=== PATIENT | male | born 1975 | race Caucasian/White ===

== ENCOUNTER 2019-01-11 12:16 | Emergency (ER) | payer SELFPAY ==
[~2019-01-11] VITALS: Ht 167.6 cm; Wt 70.3 kg
[2019-01-11] MEDS ORDERED: DEXAMETHASONE SOD PHOS 4 MG/ML VIAL IM ONE (13:00)
[2019-01-11] MEDS ORDERED: KETOROLAC 60 MG/2 ML VIAL. IM ONE (13:00)
[2019-01-11] MEDS ORDERED: METOCLOPRAMIDE 10 MG TABLET. PO ONE (13:00)
[2019-01-11] MEDS ORDERED: diphenhydrAMINE HCL 25 MG CAPSULE PO ONE (13:00)
--- NOTE | 2019-01-11 13:19 | PHYS DOC ---
Past Medical History Past Medical History: No Pertinent History, Migraines, Other Past Surgical History: Other Additional Past Surgical Histo: HERNIA REPAIR, TOE REPAIR, CYST REMOVAL FROM NECK Alcohol Use: Occasionally Drug Use: Marijuana Adult General Chief Complaint Chief Complaint: HEADACHE HPI HPI Patient is a 43 year old male presents to the ED complaining of headache times one week ago. Patient states the headache is on left-side of head. Describes the pain as sharp. Rates the pain as 10/10. States he is taking Aleve [id number] without relief. Patient has a history of a cystic lesion to his neck that was removed in the past. States he used to have headaches prior to cyst removal. Denies worsening of life, vision changes, fever, nausea/vomiting, chest pain, shortness of breath, weakness or paresthesias. Review of Systems Review of Systems Constitutional: Denies fever or chills [] Eyes: Denies change in visual acuity, redness, or eye pain [] HENT: Denies nasal congestion or sore throat [] Respiratory: Denies cough or shortness of breath [] Cardiovascular: No additional information not addressed in HPI [] GI: Denies abdominal pain, nausea, vomiting, bloody stools or diarrhea [] : Denies dysuria or hematuria [] Musculoskeletal: Denies back pain or joint pain [] Integument: Denies rash or skin lesions [] Neurologic: Complains of headache. Denies focal weakness or sensory changes [] Endocrine: Denies polyuria or polydipsia [] All other systems were reviewed and found to be within normal limits, except as documented in this note. Current Medications Current Medications Current Medications Medications (Trade) Dose Ordered Sig/Jose Alberto Start Time Stop Time Status Last Admin Dose Admin Dexamethasone Sodium Phosphate (Decadron) 8 mg 1X ONCE 01/11/19 13:00 01/11/19 13:02 DC 01/11/19 14:00 8 MG Diphenhydramine HCl (Benadryl) 25 mg 1X ONCE 01/11/19 13:00 01/11/19 13:02 DC 01/11/19 14:01 25 MG Ketorolac Tromethamine (Toradol Im) 60 mg 1X ONCE 01/11/19 13:00 01/11/19 13:02 DC 01/11/19 14:00 60 MG Metoclopramide HCl (Reglan) 10 mg 1X ONCE 01/11/19 13:00 01/11/19 13:02 DC 01/11/19 14:00 10 MG Allergies Allergies Allergies Coded Allergies Type Severity Reaction Last Updated Verified No Known Drug Allergies 01/11/19 No Physical Exam Physical Exam Constitutional: Well developed, well nourished, no acute distress, non-toxic appearance. [] HENT: Normocephalic, atraumatic, bilateral external ears normal, oropharynx moist, no oral exudates, nose normal. [] Eyes: PERRLA, EOMI, conjunctiva normal, no discharge. [] Neck: Normal range of motion, no tenderness, supple, no stridor. [] Cardiovascular:Heart rate regular rhythm, no murmur [] Lungs & Thorax: Bilateral breath sounds clear to auscultation [] Abdomen: Bowel sounds normal, soft, no tenderness, no masses, no pulsatile masses. [] Skin: Warm, dry, no erythema, no rash. [] Back: No tenderness, no CVA tenderness. [] Extremities: No tenderness, no cyanosis, no clubbing, ROM intact, no edema. [] Neurologic: Alert and oriented X 3, normal motor function, normal sensory functi on, no focal deficits noted. DTR's intact. [] Psychologic: Affect normal, judgement normal, mood normal. [] Current Patient Data Vital Signs Vital Signs Date Time Temp Pulse Resp B/P (MAP) Pulse Ox O2 Delivery O2 Flow Rate FiO2 01/11/19 14:30 66 16 100 01/11/19 12:39 98.2 149/76 (100) Room Air 98.2 EKG EKG [] Radiology/Procedures Radiology/Procedures PROCEDURE: CT HEAD AND CERVICAL SPINE WO PQRS Compliance Statement: One or more of the following individualized dose reduction techniques were utilized for this examination: 1. Automated exposure control 2. Adjustment of the mA and/or kV according to patient size 3. Use of iterative reconstruction technique CT HEAD AND CERVICAL SPINE WITHOUT CONTRAST History: Head pain, history of cystic lesion to neck Comparison: None. Procedure: Axial images are obtained of the head from the skull base through the vertex without IV contrast. Noncontrast helical CT of the cervical spine was performed. Axial, sagittal, and coronal reconstructions were obtained. Findings: The ventricles and sulci are normal for the patient's age. No mass-effect, midline shift, hemorrhage or obvious acute infarction is identified. Basilar cisterns are patent. Bone windows demonstrate no significant calvarial abnormality. The visualized paranasal sinuses are clear. Mastoid air cells are well aerated. There is no evidence of acute fracture or acute malalignment of the cervical spine. There are no perched or jumped facets. There is degenerative endplate spurring in the cervical spine. There is mild grade 1 anterolisthesis of C2 on C3. The alignment is otherwise maintained. There is no significant disc space narrowing. The craniovertebral junction is normal. Uncinate process hypertrophy of C3/C4 and C4/C5. Visualized soft tissues of the neck demonstrate no significant abnormalities. There is right apical paraseptal emphysema. There is a 4 cm bulla in the right lung apex. No consolidation. IMPRESSION: 1. No acute intracranial abnormality. 2. No acute fracture of the cervical spine. 3. Right apical paraseptal emphysema.[] Course & Med Decision Making Course & Med Decision Making Pertinent Labs and Imaging studies reviewed. (See chart for details) []Discussed imaging findings with patient. Patient's headache resolved in the ED. States he is feeling much better. Patient able to ambulate without assistance. Discussed symptomatic treatment and follow up outpatient. Provided contact information/education. Discussed reasons to return to the ED. Patient understands and agrees with plan. Dragon Disclaimer Dragon Disclaimer This electronic medical record was generated, in whole or in part, using a voice recognition dictation system. Departure Departure Impression: Primary Impression: Headache Disposition: 01 HOME, SELF-CARE Condition: IMPROVED Referrals: NO PCP (PCP) ISELA ESPARZA MD Patient Instructions: General Headache Without Cause FEDERICO DAVIDSON Jan 11, 2019 13:19
--- NOTE | 2019-01-11 14:01 | RAD ---
PQRS Compliance Statement: One or more of the following individualized dose reduction techniques were utilized for this examination: 1. Automated exposure control 2. Adjustment of the mA and/or kV according to patient size 3. Use of iterative reconstruction technique CT HEAD AND CERVICAL SPINE WITHOUT CONTRAST History: Head pain, history of cystic lesion to neck Comparison: None. Procedure: Axial images are obtained of the head from the skull base through the vertex without IV contrast. Noncontrast helical CT of the cervical spine was performed. Axial, sagittal, and coronal reconstructions were obtained. Findings: The ventricles and sulci are normal for the patient's age. No mass-effect, midline shift, hemorrhage or obvious acute infarction is identified. Basilar cisterns are patent. Bone windows demonstrate no significant calvarial abnormality. The visualized paranasal sinuses are clear. Mastoid air cells are well aerated. There is no evidence of acute fracture or acute malalignment of the cervical spine. There are no perched or jumped facets. There is degenerative endplate spurring in the cervical spine. There is mild grade 1 anterolisthesis of C2 on C3. The alignment is otherwise maintained. There is no significant disc space narrowing. The craniovertebral junction is normal. Uncinate process hypertrophy of C3/C4 and C4/C5. Visualized soft tissues of the neck demonstrate no significant abnormalities. There is right apical paraseptal emphysema. There is a 4 cm bulla in the right lung apex. No consolidation. IMPRESSION: 1. No acute intracranial abnormality. 2. No acute fracture of the cervical spine. 3. Right apical paraseptal emphysema. Electronically signed by: Juan Cordero MD (01/11/2019 1:58 PM) [id number]
[2019-01-11 14:30] VITALS: BP 123/84
== END 2019-01-11 14:47 | disposition home or self-care (01) ==
LOC: ER 12:16
DX: R51 Headache (principal); J43.8 Other emphysema; G43.909 Migraine, unspecified, not intractable, without status migrainosus
CPT/HCPCS: 70450; 72125; 96372; 99284; J1100; J1885; J8597; Q0163